=== PATIENT | male | born 1995 | race Caucasian/White ===

== ENCOUNTER 2017-02-14 17:17 | Emergency (ER) | payer OTHER ==
[~2017-02-14] VITALS: Ht 170.2 cm; Wt 74.0 kg
[2017-02-14 17:22] VITALS: Ht 170.2 cm; Wt 74.0 kg
[2017-02-14] MEDS ORDERED: LORAZEPAM 2 MG INJ IV STA (17:49)
[2017-02-14 18:14] LABS: BASOPHILS % 0.6 % (0.0-2.0); EOSINOPHILS # 0.2 10^3/ul (0.0-0.5); EOSINOPHILS % 3.1 % (0.0-7.0); HEMATOCRIT 38.2 % (42.0-52.0); HEMOGLOBIN 12.5 g/dl (14.0-18.0); LYMPHOCYTES # 1.8 10^3/ul (0.8-2.9); LYMPHOCYTES % 26.3 % (15.0-51.0); MEAN CORPUSCULAR HEMOGLOBIN 27.8 pg (29.0-33.0); MEAN CORPUSCULAR HGB CONC 32.7 g/dl (32.0-37.0); MEAN CORPUSCULAR VOLUME 85.1 fl (82.0-101.0); MONOCYTE # 0.6 10^3/ul (0.3-0.9); MONOCYTES % 9.4 % (0.0-11.0); NEUTROPHILS % 60.5 % (39.0-77.0); PLATELET COUNT 223 10^3/UL (140-415); RED BLOOD COUNT 4.49 10^6/ul (4.70-6.10); RED CELL DISTRIBUTION WIDTH 12.6 % (11.5-14.5); WHITE BLOOD COUNT 6.7 10^3/ul (4.8-10.8)
--- NOTE | 2017-02-14 18:25 | RADRPT ---
PROCEDURE: CT Brain without contrast. CLINICAL INDICATION: Seizure TECHNIQUE: A CT of the brain was performed on a [employer] 64-slice CT scanner utilizing axial imaging from the skull base through the vertex without IV contrast. Multiplanar reformatted images were made. Images were reviewed on a PACS workstation. The CTDIvol is 44.7 mGy and the DLP is 720 mGycm. One or more of the following dose reduction techniques were utilized: 1.) Automated exposure control 2.) Adjustment of the mA +/- kV according to patient's size 3.) Use of iterative reconstruction technique. COMPARISON: None FINDINGS: There is no intracranial hemorrhage, mass effect, or midline shift. No extra-axial fluid collection is seen. The ventricles and sulci are normal in size and configuration. The density of the brain is normal, and the teran white matter differentiation appears well-preserved. The visualized paranasal sinuses and osseous structures are grossly unremarkable. IMPRESSION: 1. No evidence of acute intracranial pathology. 2. The brain is normal in appearance. Physician Adelita Date Time Electronically viewed and signed by Physician Adelita on 02/14/2017 18:25 ML/
[2017-02-14 18:34] LABS: ALANINE AMINOTRANSFERASE 25 IU/L (13-69); ALBUMIN 4.3 g/dl (3.3-4.9); ALBUMIN/GLOBULIN RATIO 1.22; ALKALINE PHOSPHATASE 55 IU/L (42-121); ANION GAP 13 (8-16); ASPARTATE AMINO TRANSFERASE 15 IU/L (15-46); BILIRUBIN,INDIRECT 0.3 mg/dl (0-1.1); BILIRUBIN,TOTAL 0.3 mg/dl (0.2-1.3); BLOOD UREA NITROGEN 12 mg/dl (7-20); CALCIUM 9.5 mg/dl (8.4-10.2); CARBON DIOXIDE 28 mmol/L (21-31); CHLORIDE 105 mmol/L (97-110); CREATININE 0.86 mg/dl (0.61-1.24); GLUCOSE 112 mg/dl (70-220); SODIUM 142 mmol/L (135-144); TOTAL PROTEIN 7.8 g/dl (6.1-8.1)
[2017-02-14] MEDS ORDERED: DIPH25TA27 PO (18:39)
[2017-02-14] MEDS ORDERED: BENZ1TAB7 PO (18:39)
[2017-02-14] MEDS ORDERED: SERT50TA6 PO (18:39)
[2017-02-14 18:54] LABS: ETHANOL < 10.0 mg/dl
--- NOTE | 2017-02-14 19:03 | ERD ---
ER Documentation Chief Complaint Chief Complaint Brought in by Mother S/P seizure activity an hour ago HPI 21-year-old male brought to the emergency department by mom for evaluation of altered mental status. According to mom, patient had approximately 1-1/2 hours today of his eyes rolling back. He had no obvious seizure activity at that time. After the 1-1/ 2 hours, patient still was not acting himself and he was brought to the emergency department for evaluation. Patient had no receding headache, focal weakness, headache or any other complaints. According to mom, patient has been questionably compliant with his psychiatric medications and has been smoking marijuana. He has had no suicidal or homicidal thoughts. ROS All systems reviewed and are negative except as per history of present illness. Medications Home Meds Reported Medications Sertraline Hcl* (Sertraline Hcl*) 50 Mg Tablet, 50 MG PO DAILY, #30 TAB 02/14/17 Benztropine Mesylate* (Benztropine Mesylate*) 1 Mg Tablet, 1 MG PO BID, TAB 02/14/17 Diphenhydramine Hcl (Banophen) 25 Mg Tablet, 50 MG PO QHS Y for SLEEP, TAB 02/14/17 Allergies Allergies: Coded Allergies: No Known Allergy (Unverified , 02/14/17) PMhx/Soc Medical and Surgical Hx: pt denies Surgical Hx Hx Psychiatric Problems: Yes (BIPOLAR, SCHIZOPHRENIA) Hx Miscellaneous Medical Probl: Yes (SEIZURE D/O) Hx Alcohol Use: No Hx Substance Use: No Hx Tobacco Use: No Smoking Status: Never smoker FmHx Noncontributory with supportive mom at the bedside. Physical Exam Vitals Vital Signs Date Time Temp Pulse Resp B/P Pulse Ox O2 Delivery O2 Flow Rate FiO2 02/14/17 17:41 82 20 121/82 100 Room Air 02/14/17 17:22 98.4 93 20 122/71 99 Physical Exam GENERAL: The patient is well developed and appropriate for usual state of health in no apparent distress HEENT: Pupils equal, round, and reactive to light. EOMI. There is no scleral icterus. NECK: C-spine is soft and supple, there is no meningismus. There is no cervical lymphadenopathy. LUNGS: Clear to auscultation bilaterally. There are no rales, wheezes or rhonchi. HEART: Regular rate and rhythm, no murmurs, clicks, rubs or gallops. ABDOMEN: Soft, non-tender, non-distended. There are bowel sounds in all four quadrants. No rebound or guarding. EXTREMITIES: There is no peripheral cyanosis or edema. No focal swelling or erythema. NEURO: The patient moves all four extremities with 5/5 strength. Cranial nerves II - XII are intact. Normal gait. Alert and oriented SKIN: There is no apparent rash or petechiae. HEME/LYMPHATIC: There is no evidence of excessive bruising or lymphedema. PSYCHIATRIC: Patient is withdrawn with a bizarre distant affect. He appears to be anxious and somewhat catatonic upon arrival. Result Diagram: 02/14/17175002/14/171750 Results 24 hrs Laboratory Tests Test 02/14/17 17:51 White Blood Count 6.710^3/ul Red Blood Count 4.4910^6/ul Hemoglobin 12.5g/dl Hematocrit 38.2% Mean Corpuscular Volume 85.1fl Mean Corpuscular Hemoglobin 27.8pg Mean Corpuscular Hemoglobin Concent 32.7g/dl Red Cell Distribution Width 12.6% Platelet Count 37870^3/UL Mean Platelet Volume 12.0fl Neutrophils % 60.5% Lymphocytes % 26.3% Monocytes % 9.4% Eosinophils % 3.1% Basophils % 0.6% Nucleated Red Blood Cells % 0.0/100WBC Neutrophils # 4.010^3/ul Lymphocytes # 1.810^3/ul Monocytes # 0.610^3/ul Eosinophils # 0.210^3/ul Basophils # 0.010^3/ul Nucleated Red Blood Cells # 0.010^3/ul Sodium Level 142mmol/L Potassium Level 4.0mmol/L Chloride Level 105mmol/L Carbon Dioxide Level 28mmol/L Anion Gap 13 Blood Urea Nitrogen 12mg/dl Creatinine 0.86mg/dl Glucose Level 112mg/dl Calcium Level 9.5mg/dl Total Bilirubin 0.3mg/dl Direct Bilirubin 0.00mg/dl Indirect Bilirubin 0.3mg/dl Aspartate Amino Transf (AST/SGOT) 15IU/L Alanine Aminotransferase (ALT/SGPT) 25IU/L Alkaline Phosphatase 55IU/L Total Protein 7.8g/dl Albumin 4.3g/dl Globulin 3.50g/dl Albumin/Globulin Ratio 1.22 Ethyl Alcohol Level < 10.0mg/dl Current Medications Medications (Trade) Dose Ordered Sig/Alisha Route PRN Reason Start Time Stop Time Status Last Admin Dose Admin Lorazepam (Ativan) 1 mg ONCE STAT IV 02/14/17 17:49 02/14/17 17:51 DC 02/14/17 17:55 Procedures/MDM Patient was taken to a room, seen and evaluated. Comfort measures were initiated. Diagnostic tests were ordered and reviewed. 3 LEAD RHYTHM STRIP: Normal sinus rhythm without ectopy RADIOLOGY: reviewed with the radiologist REEVALUATION: After Ativan, patient is awake alert oriented with no neurologic symptoms. He is denying suicidal or homicidal thoughts and his affect and interaction appears to be much more normal. MEDICAL DECISION MAKING: This is a 21-year-old male with a history of psychiatric disease who presents for evaluation of a questionable seizure according to mom. However, patient has never had seizures and this appears to be much more likely to be psychiatric and/or related to his marijuana use then related to a seizure. He is neurologically normal with a low risk, normal CAT scan and no signs of significant electrolyte or other concerns on his lab work. After reevaluation, he appears clinically well and appropriate for outpatient care. Departure Diagnosis: Primary Impression: Anxiety Condition: Stable Patient Instructions: Anxiety Reaction Additional Instructions: Please follow up with your doctor MICHELLE MANCILLA Feb 14, 2017 19:03
[2017-02-14 19:33] VITALS: BP 114/76; PULSE 81; RESP 18
== END 2017-02-14 19:35 | disposition home or self-care (01) ==
LOC: E/R 17:17
DX: F41.9 Anxiety disorder, unspecified (principal); R00.2 Palpitations
CPT/HCPCS: 36415; 70450; 80053; 80306; 85025; 96374; J2060; Z7502

== ENCOUNTER 2018-10-31 22:50 | Emergency (ER) | payer OTHER ==
[~2018-10-31] VITALS: Ht 167.6 cm; Wt 72.7 kg
[~2018-10-31 22:50] MED LIST: BENZ1TAB7 PO; DIPH25TA27 PO; FLUO40CA ORAL; GABA300C16 ORAL; HYDR-4011 PO; SERT50TA6 PO; TRAZ-149 ORAL
[2018-10-31 22:54] VITALS: Ht 167.6 cm; Wt 72.7 kg
--- NOTE | 2018-10-31 23:37 | ERD ---
ER Documentation Chief Complaint Chief Complaint PSYCHE ISSUES; HX OF SCHIZO; HAS NOT BEEN TAKING MEDS; DENIES SI/HI HPI This is a 23-year-old male who is due for his 3-month IM shot for schizophrenia on Thursday however his effects are lightening up over the past few days. His schizophrenia symptoms are coming out again and he has insomnia with mild paranoia. He is not having any hallucinations or suicidal ideation or homicidal ideation. His mother is here because she needs something to settle him down. She will take him to the clinic tomorrow for the shot a day early ROS All systems reviewed and are negative except as per history of present illness. Medications Home Meds Reported Medications Sertraline Hcl* (Sertraline Hcl*) 50 Mg Tablet, 50 MG PO DAILY, #30 TAB 02/14/17 Benztropine Mesylate* (Benztropine Mesylate*) 1 Mg Tablet, 1 MG PO BID, TAB 02/14/17 Diphenhydramine Hcl (Banophen) 25 Mg Tablet, 50 MG PO QHS PRN for SLEEP, TAB 02/14/17 Allergies Allergies: Coded Allergies: No Known Allergy (Unverified , 02/14/17) PMhx/Soc Medical and Surgical Hx: pt denies Surgical Hx History of Surgery: No Anesthesia Reaction: No Hx Neurological Disorder: No Hx Respiratory Disorders: No Hx Cardiac Disorders: No Hx Psychiatric Problems: Yes (BIPOLAR, SCHIZOPHRENIA) Hx Miscellaneous Medical Probl: Yes (SEIZURE D/O) Hx Alcohol Use: No Hx Substance Use: No Hx Tobacco Use: No Smoking Status: Current every day smoker FmHx Family History: No coronary disease Physical Exam Vitals Vital Signs Date Temp Pulse Resp B/P (MAP) Pulse Ox O2 O2 Flow FiO2 Time Delivery Rate 10/31/18 98.7 78 20 156/90 97 Room Air 23:24 (112) 10/31/18 100.6 129 20 156/90 97 22:54 (112) Physical Exam Const: No acute distress Head: Atraumatic Eyes: Normal Conjunctiva ENT: Normal External Ears, Nose and Mouth. Neck: Full range of motion. No meningismus. Resp: Clear to auscultation bilaterally Cardio: Regular rate and rhythm, no murmurs Abd: Soft, non tender, non distended. Normal bowel sounds Skin: No petechiae or rashes Back: No midline or flank tenderness Ext: No cyanosis, or edema Neur: Awake and alert Psych: Denies suicidal or homicidal ideation, slightly paranoid Procedures/MDM Mom does not know the dose of the shot so I cannot give it to him here. I will give him 10 mg of Zyprexa IM and discharge him home, she will take him to the clinic tomorrow morning for his 3-month shot Departure Diagnosis: Primary Impression: Psychological disorder Condition: Stable Patient Instructions: Schizophrenia, General Referrals: DOCTOR,NOT ON STAFF (PCP) FUAD CORTEZ DO Oct 31, 2018 23:37
[2018-11-01] MEDS ORDERED: OLANZAPINE 10 MG VIAL IM ONE
[2018-11-01 01:47] VITALS: BP 143/82; PULSE 77; RESP 19
== END 2018-11-01 01:49 | disposition home or self-care (01) ==
LOC: E/R 22:50
DX: F99 Mental disorder, not otherwise specified (principal); S62.521A Displaced fracture of distal phalanx of right thumb, initial encounter for closed fracture; F17.210 Nicotine dependence, cigarettes, uncomplicated; W22.01XA Walked into wall, initial encounter; Y92.9 Unspecified place or not applicable
CPT/HCPCS: 29130; 73140; 96372; Z7502; Z7610

== ENCOUNTER 2018-11-19 08:43 | Day surgery (SDC) | payer OTHER ==
[2018-11-18 16:25] VITALS: Ht 180.3 cm; Wt 73.0 kg
[~2018-11-19] VITALS: Ht 180.3 cm; Wt 73.0 kg
[2018-11-19] VITALS (15 sets, daily range): BP systolic 108–131; BP diastolic 60–79; PULSE 54–84; RESP 16–18
[~2018-11-19 08:43] MED LIST changes: +CEFAZOLIN 2 GM/50 ML (PMX) 50 ML IVPB ONE
[2018-11-19] MEDS ORDERED: LIDOCAINE 1% (MPF) 30 ML INJ ONE (10:04)
[2018-11-19] MEDS ORDERED: BACITRACIN/POLYMYXIN 28.35 GM OINT TOP ONE (10:04)
[2018-11-19] MEDS ORDERED: BUPIVACAINE 0.25% (MPF) 30 ML INJ ONE (10:04)
[2018-11-19] MEDS ORDERED: POLYMYXIN/BACITRACIN 1L IRRIG ONE (10:15)
[2018-11-19] MEDS ORDERED: SEVOFLURANE 15 MIN ONE (10:20)
[2018-11-19] MEDS ORDERED: CEFAZOLIN 1 GM INJ ONE (10:20)
[2018-11-19] MEDS ORDERED: FENTAnyl 50 MCG/ML VIAL ONE (10:24)
[2018-11-19] MEDS ORDERED: OXYCODONE/ACETAMINOPHEN (5/325) TAB PO PRN ×2 (10:30)
[2018-11-19] MEDS ORDERED: ONDANSETRON 4 MG INJ IV PRN (10:30)
[2018-11-19] MEDS ORDERED: HYDROmorphONE 1 MG/5 ML IV SYRINGE IV PRN ×3 (10:30)
[2018-11-19] MEDS ORDERED: hydrALAzine 20 MG INJ IV PRN (10:30)
[2018-11-19] MEDS ORDERED: DIPHENHYDRAMINE 50 MG INJ IV PRN (10:30)
[2018-11-19] MEDS ORDERED: KETOROLAC 15 MG INJ IV PRN (10:30)
[2018-11-19] MEDS ORDERED: LABETALOL HCL 20MG INJ IV PRN (10:30)
[2018-11-19] MEDS ORDERED: FENTAnyl 50 MCG/ML VIAL IV PRN ×2 (10:30)
[2018-11-19] MEDS ORDERED: ALBUTEROL 0.083% (NEB) 2.5 MG/3 ML AMP HHN PRN (10:30)
[2018-11-19] MEDS ORDERED: ATROPINE 1 MG/10 ML SYRINGE IV PRN (10:30)
[2018-11-19] MEDS ORDERED: LEVALBUTEROL (NEB) 0.63 MG/3 ML AMP HHN PRN (10:30)
[2018-11-19] MEDS ORDERED: morphine 2 MG INJ IV PRN ×2 (10:30)
[2018-11-19] MEDS ORDERED: EPHEDrine 25 MG/5 ML SYG IV PRN (10:30)
[2018-11-19] MEDS ORDERED: PROPOFOL 60 ML ONE (11:00)
[2018-11-19] MEDS ORDERED: LIDOCAINE 2% (SDV) 5 ML INJ ONE (11:00)
[2018-11-19] MEDS ORDERED: ONDANSETRON 4 MG INJ ONE (11:00)
== END 2018-11-19 13:11 | disposition home or self-care (01) ==
LOC: SDS 08:43
PROVIDERS: ATTEND Orthopaedic Surgery
DX: S62.521A Displaced fracture of distal phalanx of right thumb, initial encounter for closed fracture (principal); F41.8 Other specified anxiety disorders; F12.90 Cannabis use, unspecified, uncomplicated; F17.210 Nicotine dependence, cigarettes, uncomplicated; X58.XXXA Exposure to other specified factors, initial encounter; Y93.89 Activity, other specified; Y92.89 Other specified places as the place of occurrence of the external cause; Y99.8 Other external cause status
CPT/HCPCS: 26756; 73130; 80053; 85025; 85610; 85730; J2405; J3010; Z7610; C1713; J0690

== ENCOUNTER 2018-12-12 07:44 | Emergency (ER) | payer OTHER ==
[~2018-12-12] VITALS: Wt 65.9 kg
[~2018-12-12 07:44] MED LIST changes: -CEFAZOLIN 2 GM/50 ML (PMX) 50 ML IVPB ONE; -DIPH25TA27 PO; -SERT50TA6 PO; -TRAZ-149 ORAL; +TRAZ-188 ORAL
[2018-12-12 09:41] VITALS: BP 113/60; PULSE 68; RESP 20
== END 2018-12-12 09:42 | disposition home or self-care (01) ==
LOC: FTE 07:44
DX: S62.501A Fracture of unspecified phalanx of right thumb, initial encounter for closed fracture (principal); F17.210 Nicotine dependence, cigarettes, uncomplicated; X58.XXXA Exposure to other specified factors, initial encounter; Y92.9 Unspecified place or not applicable; Z46.89 Encounter for fitting and adjustment of other specified devices